=== PATIENT | female | born 1995 | race African-American/Black ===

== ENCOUNTER 2017-02-18 17:40 | Emergency (ER) | payer OTHER ==
[~2017-02-18] VITALS: Ht 157.5 cm; Wt 54.4 kg
[2017-02-18] MEDS ORDERED: NS 1,000 ML IV SCH (18:04)
[2017-02-18] MEDS ORDERED: CHARCOAL ACTIVATED LIQUID 25 GM/120 ML BTL As Ordered ONE (18:13)
[2017-02-18] MEDS ORDERED: CHARCOAL ACTIVATED LIQUID 25 GM/120 ML BTL PO ONE (18:15)
[2017-02-18 18:21] LABS: CONTROL LINE HCG INT CTR LINE PRESENT
[2017-02-18 18:22] LABS: BASO % 0.7 % (0.0-1.0); EOS # 0.1 K/mm3 (0.0-0.50); LARGE UNSTAINED CELL # 0.2 K/mm3 (0.0-0.4); LARGE UNSTAINED CELL % 3.5 % (0.0-4.0); LYMPH # 2.3 K/mm3 (1.5-6.5); LYMPH % 35.6 % (24.0-44.0); MEAN CORPUSCULAR HEMOGLOBIN 27.2 pg (27.0-33.0); MEAN CORPUSCULAR HGB CONC 32.2 g/dl (32.0-36.5); MEAN CORPUSCULAR VOLUME 84.5 fl (80.0-96.0); MONO # 0.3 K/mm3 (0.0-0.8); MONO % 5.4 % (0.0-5.0); NEUTROPHILS # 3.1 K/mm3 (1.8-7.7); NEUTROPHILS % 52.8 % (36.0-66.0); PLATELET COUNT, AUTOMATED 220 k/mm3 (150-450); RED CELL DISTRIBUTION WIDTH 12.9 % (11.5-14.5); WHITE BLOOD COUNT 5.9 K/mm3 (4.0-10.0)
[2017-02-18 18:32] LABS: ALBUMIN 3.7 GM/DL (3.2-5.2); ALBUMIN/GLOBULIN RATIO 1.03 (1.00-1.93); ALKALINE PHOSPHATASE 82 U/L (45-117); ALT/SGPT 33 U/L (12-78); ANION GAP 7 MEQ/L (8-16); AST/SGOT 37 U/L (15-37); BILIRUBIN,DIRECT 0.1 MG/DL (0.0-0.2); BILIRUBIN,TOTAL 0.4 MG/DL (0.2-1.0); BLOOD UREA NITROGEN 9 MG/DL (7-18); CALCIUM LEVEL 8.5 MG/DL (8.5-10.1); CARBON DIOXIDE LEVEL 28 MEQ/L (21-32); CHLORIDE LEVEL 104 MEQ/L (98-107); CREATININE FOR GFR 0.69 MG/DL (0.55-1.02); GLOMERULAR FILTRATION RATE > 60.0 (>60); GLUCOSE, FASTING 77 MG/DL (70-105); POTASSIUM SERUM 3.5 MEQ/L (3.5-5.1); SODIUM LEVEL 139 MEQ/L (136-145); TOTAL PROTEIN 7.3 GM/DL (6.4-8.2)
[2017-02-18] MEDS ORDERED: ISOVUE-370 76% 100ML VIAL (Q9967) As Ordered ONE (19:20)
--- NOTE | 2017-02-18 19:58 | REP ---
Clinical: Right lower quadrant pain. Technique: Axial contrast enhanced images from the lung bases to the pubic symphysis using oral and 100 ml Isovue 370 intravenous contrast material with coronal and sagittal re-formations. Findings: Lung bases are clear. Visualized heart and pericardium normal. Liver, spleen, pancreas, gallbladder, bilateral adrenal glands and kidneys are normal. The enteric system is poorly evaluated due to paucity of intraperitoneal fat and limited intraluminal contrast opacification. There is no evidence for obstruction or perforation. Only portions of what appeared to be a normal appendix are identified in the right lower quadrant and the entire appendix cannot be defined. The pelvis demonstrates normal bladder and age-appropriate uterus/adnexa. There is suspected cystic changes to the right ovary and possible small amount of adjacent adnexal fluid which may be related to patient's symptoms and reflect involuting cyst. There is no evidence for ascites. No free air. No significant adenopathy. Vasculature is normal. Musculoskeletal structures are intact and normal for age. Impression: 1. Somewhat limited evaluation of the right lower quadrant due to paucity of intraperitoneal fat and poor intraluminal enteric contrast. Portions of the appendix are identified and appear normal however correlation is recommended. 2. Subtle heterogeneity involving the right adnexa with two cysts and possible trace adnexal fluid may reflect involuting follicle/cyst and possibly related to patient's symptoms. Consider pelvic ultrasound for further investigation. Signed by Jose L Bonilla MD 02/18/2017 07:49 P
--- NOTE | 2017-02-18 20:10 | ECGEPIP ---
Stationary ECG Study [facility] - ED Test Date: 2017-02-18 Pat Name: EZE SPRAGUE Department: Room: - Gender: F Nut Tightener: rn : 1995 Requested By: ALICE TORRES Order Number: [id number] Reading MD: Colleen Elias Measurements Intervals Gaffney Rate: 60 P: 53 CO: 144 QRS: 11 QRSD: 87 T: 36 QT: 423 QTc: 424 Interpretive Statements SINUS RHYTHM NONSPECIFIC T-WAVE ABNORMALITY NO PRIOR FOR COMPARISON Electronically Signed On 02-18-2017 20:10:14 EDT by Colleen Elias
[2017-02-18] MEDS: KCL 20MEQ in NS 1000ML 1,000 ML IV SCH (20:30)
[2017-02-18 21:09] LABS: METHADONE URINE NEGATIVE (NEGATIVE)
[2017-02-18] MEDS ORDERED: KETOROLAC 30 MG/ML VIAL (J1885) IV ONE (23:45)
[2017-02-18] MEDS ORDERED: BIOT1CAP2 PO (23:54)
[2017-02-18] MEDS ORDERED: STEEL LIBIDO PO (23:54)
[2017-02-19] MEDS: KCL 20MEQ in NS 1000ML 1,000 ML IV SCH ×2 (01:28→06:15)
[2017-02-19 07:20] VITALS: BP 117/65
== END 2017-02-19 07:45 ==
LOC: M ED 18:58
DX: F31.32 Bipolar disorder, current episode depressed, moderate (principal); X58.XXXA Exposure to other specified factors, initial encounter; Y92.89 Other specified places as the place of occurrence of the external cause; Y93.89 Activity, other specified; Y99.9 Unspecified external cause status; Z79.899 Other long term (current) drug therapy; T43.212A Poisoning by selective serotonin and norepinephrine reuptake inhibitors, intentional self-harm, initial encounter; Z88.0 Allergy status to penicillin
CPT/HCPCS: 36415; 74177; 80048; 80076; 80306; 81001; 82550; 82553; 83605; 83930; 84443; 84703; 85025; 93005; 93041; 94760; 96361; 96374; 99285; G0480; J1885; Q9967

== ENCOUNTER → 2017-08-08 | Outpatient (CLI) | payer OTHER ==
[~2017-08-08] MED LIST: BIOT1CAP2 PO; STEEL LIBIDO PO
--- NOTE | 2017-08-08 14:52 | REP ---
Obstetric ultrasound: There is a single intrauterine gestation in a breech presentation. There is movement and cardiac activity. The heart rate is 144 beats per minute. The placenta is anterior. There is no placenta previa or abruptio. Placenta is grade zero. The amniotic fluid volume subjectively is normal. The cervix measures 3.9 cm length. By today's ultrasound the gestational age is 15 weeks 6 days with an MAGDI of 01/24/2018. By LMP the gestational age is 21 weeks 1 day with an MAGDI of 12/18/2017. weight is 141 grams (0 pounds, 4 ounces). This is the 45th percentile for 15 weeks 6 days and less than the 3rd percentile for 21 weeks 1 day. The gestation is too early for optimal anatomy evaluation. However, during the examination we identified a normal cranium, choroid plexus, cavum septum pellucidum, cerebellum, facial profile, upper lip, face, stomach, cord insertion, kidneys, bladder and upper lower extremities. Follow-up study for anatomy may be considered at 18-21 weeks gestational age. Signed by Gunnar Buitrago MD 08/08/2017 02:44 P
== END ==
LOC: M RAD 13:48
PROVIDERS: ATTEND Obstetrics & Gynecology
DX: Z34.82 Encounter for supervision of other normal pregnancy, second trimester (principal)

== ENCOUNTER 2017-09-05 23:49 | Outpatient (CLI) | payer OTHER ==
[~2017-09-05] VITALS: Ht 157.5 cm; Wt 61.8 kg
[2017-09-06 00:10] VITALS: BP 120/69
--- NOTE | 2017-09-06 08:51 | HPE ---
DATE OF ADMISSION: 09/05/2017 HISTORY: This is 22-year-old, 1, para 0, last menstrual period (LMP) 03/13/2017. She was on Concha until May of 2017 when she found out that she was and she discontinued. [facility] to [facility] at 9 weeks and 5 days. She was planning on having a termination. However, she changed her mind. she had a viability scan at [facility] on 08/08/2017, which showed an estimated date of confinement (EDC) of 01/24/2018, which today would make her 20 weeks gestation. Her EDC would be 12/18/2017. Therefore, the discrepancy of over a month we will take the EDC from ultrasound. She was seen in triage and sent up here. She has gastroesophageal reflux disease (GERD) and history of nausea and vomiting. However, she did not eat or drink anything today. She is presently taking vitamins and Protonix. She has no medical history. She had her wisdom teeth out. She was taking Steel-Libido but discontinued that in March. She has allergy to PENICILLIN. It gives her hives and swelling. 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 Examination today, she is in no acute distress. heart is present on the monitor. 21 weeks of gestation. Blood pressure 120/69, respirations are 18 and pulse is 81. Her oxygen saturations on room air are 98%. Temperature is 98.9. Urine is 1.010, pH is 8, negative, negative, negative. She is normocephalic, atraumatic. Neck full range of motion. Pupils equal and reactive to light. Distal pulses symmetric. No evidence of deep venous thrombosis (DVT), pulmonary embolism (PE) or superficial phlebitis. Chest is clear bilaterally at bases. No wheezes or rhonchi. Abdomen is soft. Four quadrant bowel sounds are noted. Appropriate symphysis fundus height. No rashes, lesions or pruritus. No arthralgia or myalgia. No complaints of cough, wheezes, shortness of breath or dyspnea on exertion. No chest pain. Not bleeding. Neuro complete. No incontinency, urgency or frequency. No nausea, vomiting, diarrhea or constipation. She has no gyne history. Past medical and surgical and family is noncontributory. No thalassemia or sickle cell in the family. She does not smoke, drink, abuse drugs. She is to a soldier and there is no domestic violence. She had an appointment for intake at [facility]; however, she was late and was not seen because of her tardiness of her appointment. She will continue tomorrow and do her blood work and she has an appointment for a dating ultrasound. In summary, no acute distress. All questions were answered. She wanted to know about the use of anything but Zofran for nausea and vomiting. We talked her about Diclegis, which is a combination of accommodation of Unisom and B6. We talked her about her vitamins giving her tarry stools, which is normal. We talked about bleeding, leaking from the breast, which starts at 20 weeks, and movements. The patient and had all her questions answered. We spent an hour with the patient [id number]. The patient did not demonstrate any shortness of breath while our interview was going on and there her oxygen saturations were 98%. She was discharged to the emergency room undelivered.
== END 2017-09-06 01:30 | disposition home or self-care (01) ==
LOC: M LDO 23:49
PROVIDERS: ATTEND Obstetrics & Gynecology
DX: O47.02 False labor before 37 completed weeks of gestation, second trimester (principal); O99.612 Diseases of the digestive system complicating pregnancy, second trimester; K21.9 Gastro-esophageal reflux disease without esophagitis; Z3A.20 20 weeks gestation of pregnancy; Z88.0 Allergy status to penicillin

== ENCOUNTER 2017-12-28 00:47 | Outpatient (CLI) | payer OTHER ==
[2017-12-28 01:51] LABS: HEMATOCRIT 30.5 % (36.0-47.0); HEMOGLOBIN 10.1 g/dl (12.0-15.5); MEAN CORPUSCULAR HEMOGLOBIN 27.2 pg (27.0-33.0); MEAN CORPUSCULAR HGB CONC 33.1 g/dl (32.0-36.5); PLATELET COUNT, AUTOMATED 198 10^3/uL (150-450); RED BLOOD COUNT 3.72 10^6/uL (4.00-5.40); RED CELL DISTRIBUTION WIDTH 12.7 % (11.5-14.5); WHITE BLOOD COUNT 11.5 10^3/uL (4.0-10.0)
[2017-12-28 02:05] LABS: ALBUMIN 2.5 GM/DL (3.2-5.2); ALBUMIN/GLOBULIN RATIO 0.69 (1.00-1.93); ALKALINE PHOSPHATASE 158 U/L (45-117); ALT/SGPT 14 U/L (12-78); AMYLASE 68 U/L (25-115); ANION GAP 7 MEQ/L (8-16); AST/SGOT 15 U/L (7-37); BILIRUBIN,TOTAL 0.2 MG/DL (0.2-1.0); BLOOD UREA NITROGEN 8 MG/DL (7-18); CALCIUM LEVEL 8.2 MG/DL (8.5-10.1); CARBON DIOXIDE LEVEL 25 MEQ/L (21-32); CHLORIDE LEVEL 108 MEQ/L (98-107); CREATININE FOR GFR 0.69 MG/DL (0.55-1.30); GLOMERULAR FILTRATION RATE > 60.0 (>60); GLUCOSE, FASTING 87 MG/DL (70-100); LIPASE 154 U/L (73-393); POTASSIUM SERUM 3.2 MEQ/L (3.5-5.1); SODIUM LEVEL 140 MEQ/L (136-145); TOTAL PROTEIN 6.1 GM/DL (6.4-8.2)
== END 2017-12-28 03:45 | disposition home or self-care (01) ==
LOC: M LDO 00:47
DX: O26.893 Other specified pregnancy related conditions, third trimester (principal); Z3A.37 37 weeks gestation of pregnancy; R11.2 Nausea with vomiting, unspecified; R10.9 Unspecified abdominal pain; O99.343 Other mental disorders complicating pregnancy, third trimester; F41.9 Anxiety disorder, unspecified; F32.9 Major depressive disorder, single episode, unspecified; F60.3 Borderline personality disorder; Z88.0 Allergy status to penicillin; O99.613 Diseases of the digestive system complicating pregnancy, third trimester
CPT/HCPCS: 59025